=== PATIENT | female | born 1965 | race Hispanic/Latino ===

== ENCOUNTER 2024-04-18 08:17 | Day surgery (SDC) | payer BC, OTHER ==
[2024-04-18 09:02] LABS: INR-International Normal Ratio 0.9; Prothrombin Time 12.5 sec (12.0-14.7)
[2024-04-18 09:03] LABS: PTT 26.4 sec (22.9-36.1)
[2024-04-18] MEDS ORDERED: Lidocaine 1% w/Epinephrine 1:100K 20 ML VIAL ONE (09:47)
[2024-04-18] MEDS ORDERED: Midazolam HCl 2 mg/2 ml Vial ONE (09:47)
[2024-04-18] MEDS ORDERED: fentaNYL 50 mcg/mL 1 mL Vial ONE (09:47)
== END 2024-04-18 13:35 | disposition home or self-care (01) ==
LOC: CT 08:17
PROVIDERS: ATTEND Student in an Organized Health Care Education/Training Program
DX: C34.31 Malignant neoplasm of lower lobe, right bronchus or lung (principal); C64.2 Malignant neoplasm of left kidney, except renal pelvis; E11.9 Type 2 diabetes mellitus without complications
CPT/HCPCS: 32408; 71045; 77012; 85610; 85730; 88305; 88333; 88334; 88341; 88342; 99152; 99153; J2250; J3010